=== PATIENT | male | born 1960 | race Caucasian/White ===

== ENCOUNTER 2017-03-09 08:32 | Emergency (ER) | payer OTHER ==
[2017-03-09] MEDS ORDERED: Adacel Vial IM ONE ×2 (08:38→08:39)
[2017-03-09] MEDS ORDERED: BACIGUENT PACKET TP ONE (08:38)
[2017-03-09] MEDS ORDERED: BACIGUENT PACKET ONE (08:39)
[2017-03-09] MEDS ORDERED: XYLOCAINE 1% HCL 20 ML MDV ONE (08:43)
[2017-03-09] MEDS ORDERED: XYLOCAINE 1% HCL 20 ML MDV IJ ONE (08:49)
--- NOTE | 2017-03-09 09:20 | ERPHSYRPT ---
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 radial pulse. Physician History: The patient is a right-handed 56-year-old male who accidentally got a fish hook stuck in the pad of his left thumb while fishing this morning this before arrival. His tetanus vaccination was more than 5 years ago. He is allergic to penicillin. His past medical history is significant for hypertension and GERD. Timing/Duration: today Quality: painful Severity: moderate Location: hands (left thumb) Possible Causes: other (fish hook) Associated Symptoms: denies symptoms Allergies/Adverse Reactions: acetaminophen [From Vicodin] Allergy (Severe, Verified 03/09/17 08:40) Hives hydrocodone bitartrate [From Vicodin] Allergy (Severe, Verified 03/09/17 08:40) Hives Penicillins Allergy (Mild, Verified 03/09/17 08:40) Rash Home Medications: Diltiazem HCl 120 mg [Cardizem CD 120 MG] 180 mg PO DAILY 09/04/12 [History] Famotidine 20 mg [Pepcid 20 MG] 20 mg PO BID 09/04/12 [History] Simvastatin 10 mg [Zocor 10MG] 10 mg PO DAILY 09/04/12 [History] Valsartan [Diovan] 160 mg PO BID 09/04/12 [History] Hx Tetanus, Diphtheria Vaccination/Date Given: No Hx Influenza Vaccination/Date Given: No Hx Pneumococcal Vaccination/Date Given: No Immunizations Up to Date: Yes - Review of Systems Constitutional: No Fever, No Chills Eyes: No Symptoms Ears, Nose, & Throat: No Symptoms Respiratory: No Cough, No Dyspnea Cardiac: No Chest Pain, No Edema, No Syncope Abdominal/Gastrointestinal: No Abdominal Pain, No Nausea, No Vomiting, No Diarrhea Genitourinary Symptoms: No Dysuria Musculoskeletal: No Back Pain, No Neck Pain Skin: Other (FB in left thumb) Neurological: No Dizziness, No Focal Weakness, No Sensory Changes Psychological: No Symptoms Endocrine: No Symptoms Hematologic/Lymphatic: No Symptoms Immunological/Allergic: No Symptoms All Other Systems: Reviewed and Negative - Past Medical History Pertinent Past Medical History: Yes Neurological History: No Pertinent History ENT History: No Pertinent History Cardiac History: High Cholesterol, Hypertension Respiratory History: No Pertinent History Endocrine Medical History: No Pertinent History Musculoskeletal History: No Pertinent History GI Medical History: GERD History: No Pertinent History Psycho-Social History: No Pertinent History Male Reproductive Disorders: No Pertinent History Other Medical History: breathed in chemicals gets pneumonia easily - Past Surgical History Past Surgical History: Yes Neuro Surgical History: No Pertinent History Cardiac: Cardiac Catheterization Respiratory: No Pertinent History Gastrointestinal: No Pertinent History Genitourinary: No Pertinent History Musculoskeletal: Orthopedic Surgery Male Surgical History: No Pertinent History Other Surgical History: R thyroid removed, two Right hand - Social History Smoking Status: Never smoker Exposure to second hand smoke: No Drug Use: none Patient Lives Alone: No Significant Family History: heart disease, hypertension - Nursing Vital Signs Nursing Vital Signs: Initial Vital Signs Temperature 97.7 F Temperature Source Oral Pulse Rate 77 Respiratory Rate 18 Blood Pressure [Right Arm] 127/92 Pain Intensity 4 - Physical Exam General Appearance: no apparent distress, alert Eye Exam: PERRL/EOMI, eyes nml inspection Ears, Nose, Throat Exam: normal ENT inspection, pharynx normal, moist mucous membranes Neck Exam: normal inspection, non-tender, supple, full range of motion Respiratory Exam: normal breath sounds, lungs clear, No respiratory distress Cardiovascular Exam: regular rate/rhythm, normal heart sounds Gastrointestinal/Abdomen Exam: soft, mass, No tenderness Rectal Exam: not done Back Exam: normal inspection, normal range of motion, No CVA tenderness, No vertebral tenderness Extremity Exam: normal inspection, normal range of motion Neurologic Exam: alert, oriented x 3, cooperative, normal mood/affect, sensation nml, No motor deficits Skin Exam: other (fish hook embedded superficially in pad of left thumb) SpO2 Interpretation: normal SpO2: 98 Oxygen Delivery: Room Air Ordered Tests: Active Orders 24 hr Category Date Time Status Wound Care STAT Care 03/09/17 08:38 Active Medication Summary Discontinued Medications Generic Name Dose Route Start Last Admin Trade Name Freq PRN Reason Stop Dose Admin Bacitracin 0.9 gm 03/09/17 08:38 03/09/17 08:52 Baciguent Packet TP 03/09/17 08:39 0.9 gm STAT ONE Administration Bacitracin Confirm 03/09/17 08:39 Baciguent Packet Administered 03/09/17 08:40 Dose 1 gm .ROUTE .STK-MED ONE Diphtheria/Tetanus/Acell Pertussis 0.5 ml 03/09/17 08:38 03/09/17 08:52 Adacel Vial IM 03/09/17 08:39 0.5 ml .ONCE ONE Administration Diphtheria/Tetanus/Acell Pertussis Confirm 03/09/17 08:39 Adacel Vial Administered 03/09/17 08:40 Dose 0.5 ml IM .STK-MED ONE Lidocaine HCl Confirm 03/09/17 08:43 Xylocaine 1% Hcl 20 Ml Mdv Administered 03/09/17 08:44 Dose 5 ml .ROUTE .STK-MED ONE Lidocaine HCl 10 ml 03/09/17 08:49 03/09/17 08:52 Xylocaine 1% Hcl 20 Ml Mdv IJ 03/09/17 08:50 10 ml STAT ONE Administration - Progress Progress: improved Progress Note: 03/09/17 09:18 A digital block using 1% lidocaine 10 mL was used to anesthetize the left thumb prior to the procedure. Wire cutters were used to cut the shaft of the hook. The hook was then driven through the skin and removed. Hemostasis was achieved. The patient tolerated the procedure well. The area was cleansed with Betadine. Counseled pt/family regarding: diagnosis - Departure Time of Disposition: : Departure Disposition: Home Clinical Impression: Foreign body of thumb, left Condition: Stable Critical Care Time: No Additional Instructions: You had a fish hook in your left thumb that was removed without difficulty. Keep the thumb cleansed. Take clindamycin 300 mg 3 times a day for 10 days. He were also given a tetanus vaccination today. If there are any problems, either see your primary medical doctor or return to the ER. Happy fishing. Prescriptions: Clindamycin HCl 1 cap PO TID #30 capsule
[2017-03-09] MEDS ORDERED: TENIVAC VIAL IM ONE (09:21)
[2017-03-09 09:45] VITALS: BP 120/94; PULSE 69; O2SAT 95
== END 2017-03-09 09:43 | disposition home or self-care (01) ==
LOC: ED 08:32
DX: S60.352A Superficial foreign body of left thumb, initial encounter (principal); W45.8XXA Other foreign body or object entering through skin, initial encounter
CPT/HCPCS: 90471; 90714; 90715; 99284; A9270-GY

== ENCOUNTER 2018-12-08 19:11 | Emergency (ER) | payer OTHER ==
[2018-12-08 19:23] VITALS: BP 142/88; PULSE 71; O2SAT 99
--- NOTE | 2018-12-08 19:37 | ERPHSYRPT ---
- History of Present Illness Time Seen by Provider: 12/08/18 19:20 Source: patient Exam Limitations: no limitations Patient Subjective Stated Complaint: patient states he was loading trashcan into truck and it fellon his arm , he either broke his elbow/forearm or hyperextended it. Triage Nursing Assessment: pt alert and orientededx3, able to ambulate by self, patien right arm is swollen no breaks in able to rotate but cannot pronate without extrmee pain , cap refill immediate, pulses present bilateral radius. Physician History: 58 y/o right handed white male presents with pain in right upper extremity when he attempted to lift a heavy trash can into his truck. right elbow acted as a fulcrum. pt has extreme pain with rotation of right elbow and tenderness along right forearm proximally. Occurred: just prior to arrival Method of Injury: direct blow, twisted Quality: constant Severity of Pain-Max: moderate Severity of Pain-Current: moderate Extremities Pain Location: arm: right, elbow: right, forearm: right Modifying Factors: Improves With: movement Associated Symptoms: none Allergies/Adverse Reactions: acetaminophen [From Vicodin] Allergy (Severe, Verified 03/09/17 08:40) Hives hydrocodone bitartrate [From Vicodin] Allergy (Severe, Verified 03/09/17 08:40) Hives Penicillins Allergy (Mild, Verified 03/09/17 08:40) Rash fentanyl Adverse Reaction (Verified 12/08/18 19:29) Home Medications: Diltiazem HCl 120 mg [Cardizem CD 120 MG] 180 mg PO DAILY 09/04/12 [History] Famotidine 20 mg [Pepcid 20 MG] 20 mg PO BID 09/04/12 [History] Simvastatin 10 mg [Zocor 10MG] 10 mg PO DAILY 09/04/12 [History] Valsartan [Diovan] 160 mg PO BID 09/04/12 [History] Hx Tetanus, Diphtheria Vaccination/Date Given: Yes Hx Influenza Vaccination/Date Given: No Hx Pneumococcal Vaccination/Date Given: No Immunizations Up to Date: Yes - Review of Systems Constitutional: No Symptoms Eyes: No Symptoms Ears, Nose, & Throat: No Symptoms Respiratory: No Symptoms Cardiac: No Symptoms Abdominal/Gastrointestinal: No Symptoms Genitourinary Symptoms: No Symptoms Musculoskeletal: Injury (right elbow), Joint Pain Skin: No Symptoms Neurological: No Symptoms Psychological: No Symptoms Endocrine: No Symptoms Hematologic/Lymphatic: No Symptoms Immunological/Allergic: No Symptoms All Other Systems: Reviewed and Negative - Past Medical History Pertinent Past Medical History: Yes Neurological History: No Pertinent History ENT History: No Pertinent History Cardiac History: High Cholesterol, Hypertension Respiratory History: No Pertinent History Endocrine Medical History: No Pertinent History Musculoskeletal History: No Pertinent History GI Medical History: GERD History: No Pertinent History Psycho-Social History: No Pertinent History Male Reproductive Disorders: No Pertinent History Other Medical History: breathed in chemicals gets pneumonia easily - Past Surgical History Past Surgical History: Yes Neuro Surgical History: No Pertinent History Cardiac: Cardiac Catheterization Respiratory: No Pertinent History Gastrointestinal: No Pertinent History Genitourinary: No Pertinent History Musculoskeletal: Orthopedic Surgery Male Surgical History: No Pertinent History Other Surgical History: R thyroid removed, two Right hand - Social History Smoking Status: Never smoker Exposure to second hand smoke: No Drug Use: none Patient Lives Alone: No Significant Family History: heart disease, hypertension - Nursing Vital Signs Nursing Vital Signs: Initial Vital Signs Temperature 98 F 12/08/18 19:12 Pulse Rate 71 12/08/18 19:12 Respiratory Rate 20 12/08/18 19:12 Blood Pressure 142/88 12/08/18 19:12 O2 Sat by Pulse Oximetry 99 12/08/18 19:12 Pain Scale Pain Intensity 10 - Physical Exam General Appearance: mild distress, alert, anxiety Eyes, Ears, Nose, Throat Exam: normal ENT inspection, moist mucous membranes Neck Exam: normal inspection, non-tender, supple, full range of motion Cardiovascular/Respiratory Exam: chest non-tender Abdominal Exam: non-tender Back Exam: normal inspection, normal range of motion, No CVA tenderness, No vertebral tenderness Shoulder Exam: normal inspection, non-tender, no evidence of injury, normal ROM Wrist Exam: bone tenderness, limited ROM, soft tissue tenderness Hand Exam: normal inspection, non-tender, no evidence of injury, normal ROM Neuro/Tendon Exam: normal sensation, normal motor functions, normal tendon functions Mental Status Exam: alert, oriented x 3, cooperative Skin Exam: normal color, warm, dry SpO2 Interpretation: normal SpO2: 99 O2 Delivery: Room Air - Course Nursing assessment & vital signs reviewed: Yes Ordered Tests: Active Orders 24 hr Category Date Time Status Sling Application STAT Care 12/08/18 20:14 Ordered ELBOW (MINIMUM 3 VIEWS) Stat Exams 12/08/18 19:39 Ordered FOREARM Stat Exams 12/08/18 19:40 Ordered HUMERUS Stat Exams 12/08/18 19:39 Ordered Medication Summary Discontinued Medications Generic Name Dose Route Start Last Admin Trade Name Freq PRN Reason Stop Dose Admin Ibuprofen 600 mg 12/08/18 20:16 Motrin 600 Mg PO 12/08/18 20:17 STAT ONE Meperidine HCl 25 mg 12/08/18 20:14 Demerol 25mg Syringe IM 12/08/18 20:15 STAT ONE Promethazine HCl 12.5 mg 12/08/18 20:15 Phenergan 25 Mg Inj IM 12/08/18 20:16 STAT ONE - Progress Progress: improved, pain not gone completely, re-examined Progress Note: 12/08/18 20:13 d/w dr. poole regarding xrays. no acute processes in right humerus, elbow and forearm. Counseled pt/family regarding: diagnosis, need for follow-up, rad results - Departure Time of Disposition: 20:17 Departure Disposition: Home Clinical Impression: Hyperextension injury of right elbow Condition: Stable Critical Care Time: No Referrals: BEN REBOLLEDO [Primary Care Provider] - Additional Instructions: wear sling for comfort. ice pack to areas 3 times daily for 3 days. add ibuprofen 600mg orally 3 times daily with food. follow up with primary doctor for persistent pain. Prescriptions: Tramadol HCl 50 mg [Ultram 50 mg] 50 mg PO TID PRN #15 tablet PRN Reason: Pain
[2018-12-08] MEDS ORDERED: DEMEROL 25MG SYRINGE IM ONE (20:14)
[2018-12-08] MEDS ORDERED: Phenergan 25 MG INJ IM ONE (20:15)
[2018-12-08] MEDS ORDERED: MOTRIN 600 MG PO ONE (20:16)
[2018-12-08] MEDS ORDERED: Phenergan 25 MG INJ ONE (20:20)
[2018-12-08] MEDS ORDERED: DEMEROL 25MG SYRINGE ONE (20:20)
[2018-12-08] MEDS ORDERED: MOTRIN 600 MG ONE (20:20)
[2018-12-08] MEDS ORDERED: ULTRAM 50 MG PO ONE (20:48)
[2018-12-08] MEDS ORDERED: ULTRAM 50 MG ONE (20:52)
--- NOTE | 2018-12-09 08:34 | XRAY ---
Indication: Pain following trauma. Comparison: None 2 views of the right humerus demonstrates right neck surgical clips. No other bony, articular, or soft tissue abnormalities.
--- NOTE | 2018-12-09 08:35 | XRAY ---
Indication: Pain following trauma. Comparison: None 3 views of the right elbow obtained. No bony, articular, or soft tissue abnormalities.
--- NOTE | 2018-12-09 08:36 | XRAY ---
Indication: Pain following trauma. Comparison: None 2 views of the right forearm obtained. No bony, articular, or soft tissue abnormalities.
== END 2018-12-08 21:01 | disposition home or self-care (01) ==
LOC: ED 19:11
DX: M25.521 Pain in right elbow (principal); W22.8XXA Striking against or struck by other objects, initial encounter; Q74.0 Other congenital malformations of upper limb(s), including shoulder girdle; M79.89 Other specified soft tissue disorders
CPT/HCPCS: 73060; 73080; 73090; 96372; 99284; J2175; J2550; A9270-GY

== ENCOUNTER 2020-04-02 07:43 | Emergency (ER) | payer OTHER ==
[2020-04-02 07:52] VITALS: O2SAT 99
--- NOTE | 2020-04-02 08:11 | ERPHSYRPT ---
- History of Present Illness Time Seen by Provider: 04/02/20 07:55 Source: patient Exam Limitations: no limitations Patient Subjective Stated Complaint: Pt states "I got a fish hook in my finger. " Triage Nursing Assessment: Pt presnted alert and oriented X 3, skin pwd Pt ambualtes with an upright steady gait, able to speak in clear full sentenecs pt has fish hook in his right index finger. Physician History: This is a right-handed 59-year-old white male who was fishing just prior to evaluation today when he sustained a fishhook to his right index finger. Similar episode 3 years ago occurred and he received a tetanus shot and was placed on clindamycin after the fishhook was removed. Patient is allergic to penicillin and hydrocodone. Timing/Duration: today Quality: painful Severity: mild Location: hands (Right index finger) Possible Causes: other ([place] to right index finger) Associated Symptoms: denies symptoms Allergies/Adverse Reactions: acetaminophen [From Vicodin] Allergy (Severe, Verified 03/09/17 08:40) Hives hydrocodone bitartrate [From Vicodin] Allergy (Severe, Verified 03/09/17 08:40) Hives Penicillins Allergy (Mild, Verified 03/09/17 08:40) Rash fentanyl Adverse Reaction (Verified 12/08/18 19:29) Home Medications: Diltiazem HCl 120 mg [Cardizem CD 120 MG] 180 mg PO DAILY 09/04/12 [History] Famotidine 20 mg [Pepcid 20 MG] 20 mg PO BID 09/04/12 [History] Simvastatin 10 mg [Zocor 10MG] 10 mg PO DAILY 09/04/12 [History] Valsartan [Diovan] 160 mg PO BID 09/04/12 [History] Hx Tetanus, Diphtheria Vaccination/Date Given: Yes Hx Influenza Vaccination/Date Given: No Hx Pneumococcal Vaccination/Date Given: No Immunizations Up to Date: Yes Travel Risk - International Travel Have you traveled outside of the country in past 3 weeks: No - Coronavirus Screening Are you exhibiting any of the following symptoms?: No Close contact with a COVID-19 positive Pt in past 14-21 Days: No - Review of Systems Constitutional: No Symptoms Eyes: No Symptoms Ears, Nose, & Throat: No Symptoms Respiratory: No Symptoms Cardiac: No Symptoms Abdominal/Gastrointestinal: No Symptoms Genitourinary Symptoms: No Symptoms Musculoskeletal: No Symptoms Skin: Other ([place] right index finger) Neurological: No Symptoms Psychological: No Symptoms Endocrine: No Symptoms Hematologic/Lymphatic: No Symptoms Immunological/Allergic: No Symptoms All Other Systems: Reviewed and Negative - Past Medical History Pertinent Past Medical History: Yes Neurological History: No Pertinent History ENT History: No Pertinent History Cardiac History: Hypertension Respiratory History: No Pertinent History Endocrine Medical History: Other Musculoskeletal History: No Pertinent History GI Medical History: GERD History: No Pertinent History Psycho-Social History: No Pertinent History Male Reproductive Disorders: No Pertinent History Other Medical History: partial thyroidectomy () - Past Surgical History Past Surgical History: Yes Neuro Surgical History: No Pertinent History Cardiac: Cardiac Catheterization Respiratory: No Pertinent History Gastrointestinal: No Pertinent History Genitourinary: No Pertinent History Musculoskeletal: Orthopedic Surgery Male Surgical History: No Pertinent History Other Surgical History: R thyroid removed, two Right hand - Social History Smoking Status: Never smoker Exposure to second hand smoke: Yes Drug Use: none Patient Lives Alone: No Significant Family History: heart disease, hypertension - Nursing Vital Signs Nursing Vital Signs: Initial Vital Signs Temperature 97.6 F 04/02/20 07:47 Pulse Rate 86 04/02/20 07:47 Respiratory Rate 18 04/02/20 07:47 Blood Pressure 168/82 04/02/20 07:47 O2 Sat by Pulse Oximetry 99 04/02/20 07:47 Pain Scale Pain Intensity 4 - Physical Exam General Appearance: no apparent distress, alert Eye Exam: PERRL/EOMI, eyes nml inspection Ears, Nose, Throat Exam: normal ENT inspection, moist mucous membranes Neck Exam: normal inspection, non-tender, supple, full range of motion Respiratory Exam: airway intact, No chest tenderness, No respiratory distress Gastrointestinal/Abdomen Exam: No tenderness Back Exam: normal inspection, normal range of motion, No CVA tenderness, No vertebral tenderness Extremity Exam: normal range of motion, pelvis stable, tenderness, other (( Single) palmar aspect tip of right index finger) Neurologic Exam: alert, oriented x 3, cooperative, exhibit cleaner II-XII nml as tested, normal mood/affect, nml cerebellar function, nml station & gait, sensation nml Skin Exam: normal color, warm, dry Lymphatic Exam: No adenopathy SpO2 Interpretation: normal SpO2: 99 O2 Delivery: Room Air Procedures - Additional Procedures Progress: Procedure note: The distal right index finger was prepped with Betadine solution. 2 mL's of 1% lidocaine plain was used to anesthetize the skin and underlying tissue of the distal right index finger. Using wire cutters, the leur was removed from the single fishhook that was embedded into the finger. Using hemostat the remaining fishhook was pushed out through the barbed end and removed without difficulty. The area was again prepped with Betadine solution. A Band-Aid was placed overlying the site. There were no complications patient tolerated well. - Course Nursing assessment & vital signs reviewed: Yes - Progress Progress: improved Counseled pt/family regarding: diagnosis - Departure Departure Disposition: Home Clinical Impression: [place] injury to finger Condition: Stable Critical Care Time: Yes Referrals: BEN REBOLLEDO [Primary Care Provider] - Additional Instructions: Keep area clean and dry. Wash site with soap and water daily. Do not apply ointments creams or lotions to the site. Change bandage after each washing. Take antibiotics as prescribed. Use ibuprofen for pain if not allergic to either of these medications. Avoid if there are allergies. Prescriptions: Clindamycin HCl 300 mg PO TID #15 capsule
[2020-04-02 08:17] VITALS: BP 152/75; PULSE 84
[2020-04-02] MEDS ORDERED: XYLOCAINE 1% HCL 20 ML MDV IJ ONE (09:29)
== END 2020-04-02 08:21 | disposition home or self-care (01) ==
LOC: ED 07:43
DX: S60.451A Superficial foreign body of left index finger, initial encounter (principal)
CPT/HCPCS: 99283